=== PATIENT | male | born 1945 | race Caucasian/White ===

== ENCOUNTER → 2019-09-02 | Outpatient (CLI) | payer MEDICARE ==
[~2019-09-02] MED LIST: LEVAQUIN500 MG PO; LIVALO PO; LOSARTAN PO; METOPROLOL PO; PHENERGAN25 MG/1 ML PO; SPIRONOLACTONE PO; TYLENOL WITH C1 EACH PO; ZETIA PO
--- NOTE | 2019-09-02 17:32 | Diagnostic Imaging Report ---
EXAM: CT Abdomen and Pelvis WITHOUT contrast INDICATION: Diarrhea. Abdominal pain. Cholecystectomy. COMPARISON: None. TECHNIQUE: Abdomen and pelvis were scanned utilizing a multidetector helical scanner from the lung base to the pubic symphysis without administration of IV contrast. Absence of intravenous contrast decreases sensitivity for detection of focal lesions and vascular pathology. Coronal and sagittal reformations were obtained. Routine protocol was performed. IV CONTRAST: None ORAL CONTRAST: Was administered COMPLICATIONS: None RADIATION DOSE: Total DLP: 462 mGy*cm Estimated effective dose: (DLP x 0.015 x size factor) mSv CTDIvol has been reviewed. It is below the limits set by the Radiation Protocol Committee (RPC). Dose modulation, iterative reconstruction, and/or weight based adjustment of the mA/kV was utilized to reduce the radiation dose to as low as reasonably achievable. FINDINGS: LINES and TUBES: Sternal wires. LOWER THORAX: Chronic appearing change HEPATOBILIARY: No focal hepatic lesions. No biliary ductal dilation. GALLBLADDER: Cholecystectomy SPLEEN: No splenomegaly. Small splenule PANCREAS: No focal masses or ductal dilatation. ADRENALS: No adrenal nodules KIDNEYS/URETERS: No hydronephrosis. Suspected right extrarenal pelvis versus parapelvic cyst. No stones. GI TRACT: No abnormal distention, wall thickening, or evidence of bowel obstruction. Appendix is normal. Moderate amount of retained feces in the colon could be due to constipation. PELVIC ORGANS/BLADDER: Unremarkable. LYMPH NODES: No lymphadenopathy. VESSELS: Scattered vascular calcification PERITONEUM / RETROPERITONEUM: No free air or fluid. BONES: Scattered degenerative change SOFT TISSUES: Unremarkable. IMPRESSION: 1. Findings which could be due to constipation. GI consultation recommended as clinically indicated. Signed by: Dr. Dick Oates M.D. on 09/02/2019 5:29 PM
== END ==
LOC: CT 15:42
PROVIDERS: ATTEND Internal Medicine Gastroenterology
DX: K62.5 Hemorrhage of anus and rectum (principal); R19.7 Diarrhea, unspecified
CPT/HCPCS: 74176

== ENCOUNTER 2019-10-24 05:16 | Inpatient (IN) | payer MEDICARE, OTHER ==
[~2019-10-24] VITALS: Ht 182.9 cm; Wt 93.0 kg
[2019-10-24 05:42] LABS: BASOPHILS % 0.2 % (0.0-1.0); HEMATOCRIT 50.2 % (38.2-49.6); HEMOGLOBIN 16.8 g/dL (14.0-18.0); LYMPHOCYTES # (AUTO) 0.9 (1.0-3.2); LYMPHOCYTES % 19.5 % (18.0-39.1); MEAN CORPUSCULAR HEMOGLOBIN 30.9 pg (28-32); MEAN CORPUSCULAR HGB CONC 33.5 g/dL (31-35); MEAN CORPUSCULAR VOLUME 92.3 fL (81-99); MONOCYTES # (AUTO) 0.3 (0.2-0.8); MONOCYTES % 6.7 % (4.4-11.3); NEUTROPHILS # (AUTO) 3.3 (2.1-6.9); NEUTROPHILS % 73.2 % (38.7-80.0); RED BLOOD COUNT 5.44 x10e6/uL (4.3-5.7); RED CELL DISTRIBUTION WIDTH 12.9 % (11.7-14.4)
[2019-10-24 05:55] LABS: PLATELET COUNT 96 x10e3/uL (140-360)
[2019-10-24 06:04] LABS: ALBUMIN 3.7 g/dL (3.5-5.0); ALBUMIN/GLOBULIN RATIO 1.1 (0.8-2.0); ANION GAP 18.9 mmol/L (8-16); CALCIUM 8.2 mg/dL (8.4-10.2); CREATININE, SERUM 1.26 mg/dL (0.72-1.25); POTASSIUM 3.9 mmol/L (3.5-5.1)
[2019-10-24 06:15] LABS: CREATINE KINASE MB 0.6 ng/mL (0-5.0)
[2019-10-24] MEDS ORDERED: SODIUM CHLORIDE 0.9% 1000ML 1,000 ML IV ONE (06:45)
[2019-10-24] MEDS ORDERED: SODIUM CHLORIDE 0.9% 1000ML 1,000 ML ONE (06:48)
[2019-10-24] MEDS ORDERED: AZITHROMYCIN 500MG/NS 250 ML 250 ML IV STA (07:30)
[2019-10-24] MEDS ORDERED: NICOTINE 7 MG PATCH TOP PRN (09:30)
[2019-10-24] MEDS ORDERED: ALBUTEROL/IPRATROPIUM 3 ML NEB NEB PRN (09:30)
[2019-10-24] MEDS: DEXTROSE 5% 1,000 ML IV SCH (10:25)
[2019-10-24 14:10] VITALS: BP 128/67
[2019-10-24] MEDS: ACETAMINOPHEN 325 MG TAB PO PRN (14:55)
[2019-10-24 16:00] VITALS: BP 139/75
[2019-10-24] MEDS: DEXAMETHASONE 4 MG TAB PO SCH (17:30)
[2019-10-24 20:46] VITALS: BP 114/69
[2019-10-24] MEDS: ENOXAPARIN SOD INJ 40 MG/0.4 ML SYR SC SCH (21:19)
[2019-10-24 22:00] VITALS: BP 114/69
[2019-10-25] VITALS (8 sets, daily range): BP systolic 115–155; BP diastolic 70–83
[2019-10-25 06:48] LABS: HEMATOCRIT 48.5 % (38.2-49.6); HEMOGLOBIN 16.4 g/dL (14.0-18.0); LYMPHOCYTES # (AUTO) 0.5 (1.0-3.2); LYMPHOCYTES % 21.9 % (18.0-39.1); MEAN CORPUSCULAR HEMOGLOBIN 30.7 pg (28-32); MEAN CORPUSCULAR HGB CONC 33.8 g/dL (31-35); MEAN CORPUSCULAR VOLUME 90.7 fL (81-99); MONOCYTES # (AUTO) 0.2 (0.2-0.8); MONOCYTES % 8.8 % (4.4-11.3); NEUTROPHILS # (AUTO) 1.5 (2.1-6.9); NEUTROPHILS % 69.3 % (38.7-80.0); PLATELET COUNT 100 x10e3/uL (140-360); RED BLOOD COUNT 5.35 x10e6/uL (4.3-5.7); RED CELL DISTRIBUTION WIDTH 12.8 % (11.7-14.4)
[2019-10-25 07:14] LABS: ALANINE AMINOTRANSFERASE 16 IU/L (0-55); ALBUMIN 3.4 g/dL (3.5-5.0); ALKALINE PHOSPHATASE 49 IU/L (40-150); ANION GAP 18.3 mmol/L (8-16); BLOOD UREA NITROGEN 13 mg/dL (7-26); BUN/CREATININE RATIO 18 (6-25); CALCIUM 8.2 mg/dL (8.4-10.2); CARBON DIOXIDE 18 mmol/L (22-29); CHLORIDE 103 mmol/L (98-107); CREATININE, SERUM 0.73 mg/dL (0.72-1.25); EST GLOMERULAR FILTRATION RATE > 60 ML/MIN (60-); GLUCOSE 138 mg/dL (74-118); POTASSIUM 4.3 mmol/L (3.5-5.1); SODIUM 135 mmol/L (136-145)
[2019-10-25] MEDS: DEXTROSE 5% 1,000 ML IV SCH ×3 (07:31→23:35)
[2019-10-25] MEDS: AZITHROMYCIN 250MG/NS 100 ML 100 ML IV SCH (08:00)
[2019-10-25] MEDS: DEXAMETHASONE 4 MG TAB PO SCH (09:27)
[2019-10-25] MEDS: ASPIRIN 81 MG ENTERIC COATED PO SCH (09:27)
[2019-10-25] MEDS: ENOXAPARIN SOD INJ 40 MG/0.4 ML SYR SC SCH ×2 (09:27→20:24)
[2019-10-26] VITALS (7 sets, daily range): BP systolic 131–145; BP diastolic 73–89
[2019-10-26] MEDS ORDERED: FINASTERIDE5 MG PO (00:15)
[2019-10-26] MEDS ORDERED: TADALAFIL5 MG PO (00:15)
[2019-10-26] MEDS ORDERED: BRILINTA90 MG PO (00:15)
[2019-10-26] MEDS ORDERED: TAMSULOSIN PO (00:15)
[2019-10-26 06:51] LABS: HEMATOCRIT 48.2 % (38.2-49.6); HEMOGLOBIN 16.2 g/dL (14.0-18.0); LYMPHOCYTES # (AUTO) 0.6 (1.0-3.2); LYMPHOCYTES % 12.4 % (18.0-39.1); MEAN CORPUSCULAR HEMOGLOBIN 30.7 pg (28-32); MEAN CORPUSCULAR HGB CONC 33.6 g/dL (31-35); MEAN CORPUSCULAR VOLUME 91.3 fL (81-99); MONOCYTES # (AUTO) 0.4 (0.2-0.8); MONOCYTES % 8.3 % (4.4-11.3); NEUTROPHILS # (AUTO) 3.8 (2.1-6.9); NEUTROPHILS % 78.9 % (38.7-80.0); PLATELET COUNT 116 x10e3/uL (140-360); RED BLOOD COUNT 5.28 x10e6/uL (4.3-5.7); RED CELL DISTRIBUTION WIDTH 12.5 % (11.7-14.4)
[2019-10-26 07:07] LABS: ALANINE AMINOTRANSFERASE 16 IU/L (0-55); ALBUMIN 3.3 g/dL (3.5-5.0); ALBUMIN/GLOBULIN RATIO 1.1 (0.8-2.0); ALKALINE PHOSPHATASE 46 IU/L (40-150); ANION GAP 18.9 mmol/L (8-16); BLOOD UREA NITROGEN 11 mg/dL (7-26); BUN/CREATININE RATIO 15 (6-25); CARBON DIOXIDE 19 mmol/L (22-29); CHLORIDE 102 mmol/L (98-107); CREATININE, SERUM 0.73 mg/dL (0.72-1.25); EST GLOMERULAR FILTRATION RATE > 60 ML/MIN (60-); GLUCOSE 125 mg/dL (74-118); MAGNESIUM 1.9 MG/DL (1.3-2.1); POTASSIUM 3.9 mmol/L (3.5-5.1); SODIUM 136 mmol/L (136-145)
[2019-10-26] MEDS: METOPROLOL TARTRATE 25 MG TAB PO SCH ×2 (09:36→16:45)
[2019-10-26] MEDS: DEXAMETHASONE 4 MG TAB PO SCH (09:36)
[2019-10-26] MEDS: LOSARTAN POTASSIUM 25 MG TAB PO SCH (09:36)
[2019-10-26] MEDS: ASPIRIN 81 MG ENTERIC COATED PO SCH (09:36)
[2019-10-26] MEDS: AZITHROMYCIN 250MG/NS 100 ML 100 ML IV SCH (09:36)
[2019-10-26] MEDS: SPIRONOLACTONE 25 MG TAB PO SCH (09:36)
[2019-10-26] MEDS: EZETIMIBE 10 MG TAB PO SCH (09:37)
[2019-10-26] MEDS: ENOXAPARIN SOD INJ 40 MG/0.4 ML SYR SC SCH ×2 (09:37→21:23)
[2019-10-26] MEDS: ACETAMINOPHEN 325 MG TAB PO PRN (11:00)
[2019-10-26] MEDS: DEXTROSE 5% 1,000 ML IV SCH (15:29)
[2019-10-26] MEDS ORDERED: DEXAMETHASONE 4 MG TAB PO SCH (16:00)
[2019-10-26] MEDS: CEFTRIAXONE SOD 1 GM/NS 50 ML 50 ML IV SCH (16:45)
[2019-10-26] MEDS ORDERED: REMDESIVIR 200MG/NS 100ML 200 MG in SODIUM CHLORIDE 0.9% 100 ML 100 ML IV ONE (18:00)
[2019-10-26] MEDS: SIMVASTATIN 40 MG TAB PO SCH (21:23)
[2019-10-27] VITALS (18 sets, daily range): BP systolic 104–152; BP diastolic 62–99
[2019-10-27] MEDS: ALBUTEROL SULFATE HFA 8GM INHALATION AEROSOL INH PRN (09:20)
[2019-10-27] MEDS ORDERED: DEXAMETHASONE SOD PHOS 10 MG/1 ML VIAL IV SCH (11:00)
[2019-10-27] MEDS ORDERED: FUROSEMIDE INJ 10 MG/ML 2 ML VIAL IV ONE (12:00)
[2019-10-27] MEDS: AZITHROMYCIN 250MG/NS 100 ML 100 ML IV SCH (12:35)
[2019-10-27] MEDS: ASPIRIN 81 MG ENTERIC COATED PO SCH (12:36)
[2019-10-27] MEDS: SPIRONOLACTONE 25 MG TAB PO SCH (12:36)
[2019-10-27] MEDS: LOSARTAN POTASSIUM 25 MG TAB PO SCH (12:37)
[2019-10-27] MEDS: ENOXAPARIN SOD INJ 40 MG/0.4 ML SYR SC SCH ×2 (12:39→20:18)
[2019-10-27] MEDS: EZETIMIBE 10 MG TAB PO SCH (12:39)
[2019-10-27] MEDS: METOPROLOL TARTRATE 25 MG TAB PO SCH ×2 (12:39→18:05)
[2019-10-27] MEDS: REMDESIVIR 100MG/NS 100ML 100 MG in SODIUM CHLORIDE 0.9% 100 ML 100 ML IV SCH (17:13)
[2019-10-27] MEDS: CEFTRIAXONE SOD 1 GM/NS 50 ML 50 ML IV SCH (18:04)
[2019-10-27] MEDS: DEXAMETHASONE SOD PHOS 10 MG/1 ML VIAL IV SCH (20:17)
[2019-10-27] MEDS: SIMVASTATIN 40 MG TAB PO SCH (20:17)
[2019-10-28] VITALS (24 sets, daily range): BP systolic 111–143; BP diastolic 59–114
[2019-10-28 06:15] LABS: BASOPHILS % 0.3 % (0.0-1.0); EOSINOPHILS # (AUTO) 0.2 (0.0-0.4); EOSINOPHILS % 3.2 % (0.0-6.0); HEMOGLOBIN 17.2 g/dL (14.0-18.0); LYMPHOCYTES # (AUTO) 0.5 (1.0-3.2); LYMPHOCYTES % 7.8 % (18.0-39.1); MEAN CORPUSCULAR HEMOGLOBIN 30.6 pg (28-32); MEAN CORPUSCULAR HGB CONC 33.1 g/dL (31-35); MEAN CORPUSCULAR VOLUME 92.5 fL (81-99); MONOCYTES # (AUTO) 0.5 (0.2-0.8); MONOCYTES % 8.2 % (4.4-11.3); NEUTROPHILS # (AUTO) 4.7 (2.1-6.9); NEUTROPHILS % 80.2 % (38.7-80.0); PLATELET COUNT 148 x10e3/uL (140-360); RED BLOOD COUNT 5.62 x10e6/uL (4.3-5.7); RED CELL DISTRIBUTION WIDTH 12.5 % (11.7-14.4)
[2019-10-28 06:42] LABS: ALANINE AMINOTRANSFERASE 24 IU/L (0-55); ALBUMIN 3.5 g/dL (3.5-5.0); ALBUMIN/GLOBULIN RATIO 1.1 (0.8-2.0); ALKALINE PHOSPHATASE 55 IU/L (40-150); ANION GAP 15.2 mmol/L (8-16); BLOOD UREA NITROGEN 20 mg/dL (7-26); BUN/CREATININE RATIO 26 (6-25); CALCIUM 8.7 mg/dL (8.4-10.2); CARBON DIOXIDE 23 mmol/L (22-29); CHLORIDE 104 mmol/L (98-107); CREATININE, SERUM 0.77 mg/dL (0.72-1.25); EST GLOMERULAR FILTRATION RATE > 60 ML/MIN (60-); GLUCOSE 155 mg/dL (74-118); POTASSIUM 4.2 mmol/L (3.5-5.1); SODIUM 138 mmol/L (136-145)
[2019-10-28] MEDS: AZITHROMYCIN 250MG/NS 100 ML 100 ML IV SCH (08:32)
[2019-10-28] MEDS: PANTOPRAZOLE SOD 40 MG TABEC PO SCH (08:32)
[2019-10-28] MEDS: EZETIMIBE 10 MG TAB PO SCH (08:33)
[2019-10-28] MEDS: METOPROLOL TARTRATE 25 MG TAB PO SCH ×2 (08:33→17:00)
[2019-10-28] MEDS: LOSARTAN POTASSIUM 25 MG TAB PO SCH (08:33)
[2019-10-28] MEDS: ASPIRIN 81 MG ENTERIC COATED PO SCH (08:33)
[2019-10-28] MEDS: ENOXAPARIN SOD INJ 40 MG/0.4 ML SYR SC SCH ×2 (08:33→20:30)
[2019-10-28] MEDS: FUROSEMIDE INJ 10 MG/ML 2 ML VIAL IV SCH (08:33)
[2019-10-28] MEDS: DEXAMETHASONE SOD PHOS 10 MG/1 ML VIAL IV SCH (08:33)
[2019-10-28] MEDS: SPIRONOLACTONE 25 MG TAB PO SCH (08:33)
[2019-10-28] MEDS ORDERED: DEXAMETHASONE SOD PHOS 10 MG/1 ML VIAL IV SCH (16:00)
[2019-10-28] MEDS: CEFTRIAXONE SOD 1 GM/NS 50 ML 50 ML IV SCH (17:48)
[2019-10-28] MEDS: REMDESIVIR 100MG/NS 100ML 100 MG in SODIUM CHLORIDE 0.9% 100 ML 100 ML IV SCH (17:49)
[2019-10-28] MEDS: ALBUTEROL SULFATE HFA 8GM INHALATION AEROSOL INH PRN (18:55)
[2019-10-28] MEDS: SIMVASTATIN 40 MG TAB PO SCH (20:30)
[2019-10-29] VITALS (30 sets, daily range): BP systolic 110–163; BP diastolic 64–95
[2019-10-29 05:51] LABS: BASOPHILS % 0.1 % (0.0-1.0); HEMATOCRIT 49.8 % (38.2-49.6); LYMPHOCYTES # (AUTO) 0.6 (1.0-3.2); LYMPHOCYTES % 5.7 % (18.0-39.1); MEAN CORPUSCULAR HGB CONC 34.1 g/dL (31-35); MEAN CORPUSCULAR VOLUME 90.7 fL (81-99); MONOCYTES # (AUTO) 0.6 (0.2-0.8); MONOCYTES % 5.8 % (4.4-11.3); NEUTROPHILS # (AUTO) 9.7 (2.1-6.9); NEUTROPHILS % 87.9 % (38.7-80.0); PLATELET COUNT 207 x10e3/uL (140-360); RED BLOOD COUNT 5.49 x10e6/uL (4.3-5.7); RED CELL DISTRIBUTION WIDTH 12.4 % (11.7-14.4)
[2019-10-29 06:09] LABS: ANION GAP 15.1 mmol/L (8-16); BLOOD UREA NITROGEN 23 mg/dL (7-26); BUN/CREATININE RATIO 29 (6-25); CALCIUM 8.5 mg/dL (8.4-10.2); CARBON DIOXIDE 27 mmol/L (22-29); CHLORIDE 103 mmol/L (98-107); EST GLOMERULAR FILTRATION RATE > 60 ML/MIN (60-); GLUCOSE 142 mg/dL (74-118); POTASSIUM 4.1 mmol/L (3.5-5.1); SODIUM 141 mmol/L (136-145)
[2019-10-29] MEDS: DEXAMETHASONE SOD PHOS 10 MG/1 ML VIAL IV SCH (08:52)
[2019-10-29] MEDS: EZETIMIBE 10 MG TAB PO SCH (08:53)
[2019-10-29] MEDS: PANTOPRAZOLE SOD 40 MG TABEC PO SCH (08:53)
[2019-10-29] MEDS: ENOXAPARIN SOD INJ 40 MG/0.4 ML SYR SC SCH ×2 (08:53→20:23)
[2019-10-29] MEDS: FUROSEMIDE INJ 10 MG/ML 2 ML VIAL IV SCH (08:57)
[2019-10-29] MEDS: SPIRONOLACTONE 25 MG TAB PO SCH (08:57)
[2019-10-29] MEDS: METOPROLOL TARTRATE 25 MG TAB PO SCH ×2 (08:58→17:00)
[2019-10-29] MEDS: LOSARTAN POTASSIUM 25 MG TAB PO SCH (08:58)
[2019-10-29] MEDS: AZITHROMYCIN 250MG/NS 100 ML 100 ML IV SCH (09:34)
[2019-10-29] MEDS: CEFTRIAXONE SOD 1 GM/NS 50 ML 50 ML IV SCH (15:34)
[2019-10-29] MEDS: REMDESIVIR 100MG/NS 100ML 100 MG in SODIUM CHLORIDE 0.9% 100 ML 100 ML IV SCH (17:37)
[2019-10-29] MEDS: SIMVASTATIN 40 MG TAB PO SCH (20:23)
[2019-10-29] MEDS ORDERED: TRAZODONE HCL 50 MG TAB PO PRN (21:00)
[2019-10-30] VITALS (25 sets, daily range): BP systolic 95–142; BP diastolic 58–99
[2019-10-30 04:54] LABS: BASOPHILS % 0.2 % (0.0-1.0); EOSINOPHILS % 0.1 % (0.0-6.0); HEMATOCRIT 50.3 % (38.2-49.6); HEMOGLOBIN 17.1 g/dL (14.0-18.0); LYMPHOCYTES # (AUTO) 0.7 (1.0-3.2); LYMPHOCYTES % 5.7 % (18.0-39.1); MEAN CORPUSCULAR HEMOGLOBIN 30.5 pg (28-32); MEAN CORPUSCULAR VOLUME 89.8 fL (81-99); MONOCYTES # (AUTO) 0.5 (0.2-0.8); MONOCYTES % 3.9 % (4.4-11.3); NEUTROPHILS # (AUTO) 10.7 (2.1-6.9); NEUTROPHILS % 89.3 % (38.7-80.0); PLATELET COUNT 231 x10e3/uL (140-360); RED CELL DISTRIBUTION WIDTH 12.3 % (11.7-14.4)
[2019-10-30] MEDS: PANTOPRAZOLE SOD 40 MG TABEC PO SCH (08:50)
[2019-10-30] MEDS: DEXAMETHASONE SOD PHOS 10 MG/1 ML VIAL IV SCH (08:50)
[2019-10-30] MEDS: FUROSEMIDE INJ 10 MG/ML 2 ML VIAL IV SCH (08:51)
[2019-10-30] MEDS: EZETIMIBE 10 MG TAB PO SCH (08:51)
[2019-10-30] MEDS: ENOXAPARIN SOD INJ 40 MG/0.4 ML SYR SC SCH ×2 (08:51→20:40)
[2019-10-30] MEDS: SPIRONOLACTONE 25 MG TAB PO SCH (08:51)
[2019-10-30] MEDS: METOPROLOL TARTRATE 25 MG TAB PO SCH ×2 (09:00→16:58)
[2019-10-30] MEDS: LOSARTAN POTASSIUM 25 MG TAB PO SCH (09:00)
[2019-10-30] MEDS: AZITHROMYCIN 250MG/NS 100 ML 100 ML IV SCH (09:46)
[2019-10-30] MEDS ORDERED: DEXMEDETOMIDINE 200MCG/NS 50ML 50 ML IV PRN (15:30)
[2019-10-30] MEDS: CEFTRIAXONE SOD 1 GM/NS 50 ML 50 ML IV SCH (15:47)
[2019-10-30] MEDS: REMDESIVIR 100MG/NS 100ML 100 MG in SODIUM CHLORIDE 0.9% 100 ML 100 ML IV SCH (16:58)
[2019-10-30] MEDS: SIMVASTATIN 40 MG TAB PO SCH (20:40)
[2019-10-31] VITALS (26 sets, daily range): BP systolic 94–137; BP diastolic 60–81
[2019-10-31 05:22] LABS: BASOPHILS % 0.1 % (0.0-1.0); HEMOGLOBIN 16.8 g/dL (14.0-18.0); LYMPHOCYTES # (AUTO) 0.8 (1.0-3.2); LYMPHOCYTES % 5.4 % (18.0-39.1); MEAN CORPUSCULAR VOLUME 91.4 fL (81-99); MONOCYTES # (AUTO) 0.4 (0.2-0.8); MONOCYTES % 2.8 % (4.4-11.3); NEUTROPHILS # (AUTO) 13.2 (2.1-6.9); NEUTROPHILS % 90.8 % (38.7-80.0); PLATELET COUNT 204 x10e3/uL (140-360); RED BLOOD COUNT 5.25 x10e6/uL (4.3-5.7); RED CELL DISTRIBUTION WIDTH 12.2 % (11.7-14.4)
[2019-10-31 05:42] LABS: BLOOD UREA NITROGEN 26 mg/dL (7-26); BUN/CREATININE RATIO 34 (6-25); CALCIUM 8.7 mg/dL (8.4-10.2); CARBON DIOXIDE 26 mmol/L (22-29); CHLORIDE 101 mmol/L (98-107); CREATININE, SERUM 0.76 mg/dL (0.72-1.25); EST GLOMERULAR FILTRATION RATE > 60 ML/MIN (60-); GLUCOSE 121 mg/dL (74-118); SODIUM 139 mmol/L (136-145)
[2019-10-31] MEDS: DEXMEDETOMIDINE 200MCG/NS 50ML 50 ML IV PRN ×3 (06:57→23:12)
[2019-10-31] MEDS: DEXAMETHASONE SOD PHOS INJ 4 MG/ML VIAL IV SCH (08:21)
[2019-10-31] MEDS: PANTOPRAZOLE SOD 40 MG TABEC PO SCH (08:21)
[2019-10-31] MEDS: ENOXAPARIN SOD INJ 40 MG/0.4 ML SYR SC SCH (08:21)
[2019-10-31] MEDS: FUROSEMIDE INJ 10 MG/ML 2 ML VIAL IV SCH (08:21)
[2019-10-31] MEDS: EZETIMIBE 10 MG TAB PO SCH (08:21)
[2019-10-31] MEDS: SPIRONOLACTONE 25 MG TAB PO SCH (08:21)
[2019-10-31] MEDS: METOPROLOL TARTRATE 25 MG TAB PO SCH ×2 (09:00→17:00)
[2019-10-31] MEDS ORDERED: FUROSEMIDE INJ 10 MG/ML 4 ML VIAL IV ONE (11:30)
[2019-10-31] MEDS: CEFTRIAXONE SOD 1 GM/NS 50 ML 50 ML IV SCH (16:04)
[2019-10-31] MEDS: SIMVASTATIN 40 MG TAB PO SCH (20:26)
[2019-11-01] VITALS (24 sets, daily range): BP systolic 86–141; BP diastolic 53–96
[2019-11-01 04:56] LABS: BASOPHILS % 0.2 % (0.0-1.0); EOSINOPHILS % 0.1 % (0.0-6.0); HEMATOCRIT 49.3 % (38.2-49.6); LYMPHOCYTES # (AUTO) 0.8 (1.0-3.2); MEAN CORPUSCULAR HEMOGLOBIN 30.4 pg (28-32); MEAN CORPUSCULAR HGB CONC 34.5 g/dL (31-35); MONOCYTES # (AUTO) 0.4 (0.2-0.8); MONOCYTES % 2.3 % (4.4-11.3); NEUTROPHILS # (AUTO) 14.9 (2.1-6.9); NEUTROPHILS % 91.4 % (38.7-80.0); PLATELET COUNT 240 x10e3/uL (140-360)
[2019-11-01 05:15] LABS: ANION GAP 15.3 mmol/L (8-16); BLOOD UREA NITROGEN 29 mg/dL (7-26); BUN/CREATININE RATIO 39 (6-25); CALCIUM 8.7 mg/dL (8.4-10.2); CARBON DIOXIDE 25 mmol/L (22-29); CHLORIDE 101 mmol/L (98-107); CREATININE, SERUM 0.74 mg/dL (0.72-1.25); EST GLOMERULAR FILTRATION RATE > 60 ML/MIN (60-); GLUCOSE 128 mg/dL (74-118); POTASSIUM 4.3 mmol/L (3.5-5.1); SODIUM 137 mmol/L (136-145)
[2019-11-01] MEDS: DEXMEDETOMIDINE 200MCG/NS 50ML 50 ML IV PRN ×4 (06:10→20:40)
[2019-11-01] MEDS: PANTOPRAZOLE SOD 40 MG TABEC PO SCH (07:30)
[2019-11-01] MEDS: ENOXAPARIN SOD INJ 40 MG/0.4 ML SYR SC SCH ×2 (08:15→16:02)
[2019-11-01] MEDS: DEXAMETHASONE SOD PHOS INJ 4 MG/ML VIAL IV SCH (08:15)
[2019-11-01] MEDS: SPIRONOLACTONE 25 MG TAB PO SCH (08:15)
[2019-11-01] MEDS: FUROSEMIDE INJ 10 MG/ML 2 ML VIAL IV SCH (08:15)
[2019-11-01] MEDS: EZETIMIBE 10 MG TAB PO SCH (08:16)
[2019-11-01] MEDS: METOPROLOL TARTRATE 25 MG TAB PO SCH ×2 (08:16→17:00)
[2019-11-01] MEDS ORDERED: ENOXAPARIN SOD INJ 40 MG/0.4 ML SYR SC SCH (09:00)
[2019-11-01] MEDS: CEFTRIAXONE SOD 1 GM/NS 50 ML 50 ML IV SCH (16:02)
[2019-11-01] MEDS: VANCOMYCIN 1GM/NS 250 ML 250 ML IV SCH (20:11)
[2019-11-01] MEDS: MIRTAZAPINE 15 MG TAB PO SCH (20:11)
[2019-11-01] MEDS: SIMVASTATIN 40 MG TAB PO SCH (20:11)
[2019-11-01] MEDS: MEROPENEM 1GM 100 ML IV SCH (21:30)
[2019-11-02] VITALS (25 sets, daily range): BP systolic 87–141; BP diastolic 45–87
[2019-11-02] MEDS: DEXMEDETOMIDINE 200MCG/NS 50ML 50 ML IV PRN (03:20)
[2019-11-02 04:57] LABS: BASOPHILS % 0.2 % (0.0-1.0); EOSINOPHILS % 0.2 % (0.0-6.0); HEMATOCRIT 52.1 % (38.2-49.6); HEMOGLOBIN 17.8 g/dL (14.0-18.0); LYMPHOCYTES # (AUTO) 0.7 (1.0-3.2); LYMPHOCYTES % 3.7 % (18.0-39.1); MEAN CORPUSCULAR HEMOGLOBIN 31.2 pg (28-32); MEAN CORPUSCULAR HGB CONC 34.2 g/dL (31-35); MEAN CORPUSCULAR VOLUME 91.4 fL (81-99); MONOCYTES # (AUTO) 0.3 (0.2-0.8); MONOCYTES % 1.5 % (4.4-11.3); NEUTROPHILS # (AUTO) 16.5 (2.1-6.9); NEUTROPHILS % 93.3 % (38.7-80.0); PLATELET COUNT 257 x10e3/uL (140-360); RED CELL DISTRIBUTION WIDTH 12.2 % (11.7-14.4)
[2019-11-02 05:19] LABS: ANION GAP 17.2 mmol/L (8-16); BLOOD UREA NITROGEN 30 mg/dL (7-26); BUN/CREATININE RATIO 40 (6-25); CALCIUM 8.3 mg/dL (8.4-10.2); CARBON DIOXIDE 24 mmol/L (22-29); CHLORIDE 105 mmol/L (98-107); CREATININE, SERUM 0.75 mg/dL (0.72-1.25); EST GLOMERULAR FILTRATION RATE > 60 ML/MIN (60-); GLUCOSE 120 mg/dL (74-118); POTASSIUM 4.2 mmol/L (3.5-5.1); SODIUM 142 mmol/L (136-145)
[2019-11-02] MEDS: MEROPENEM 1GM 100 ML IV SCH ×3 (05:55→22:55)
[2019-11-02] MEDS ORDERED: ROCURONIUM BROMIDE 1,250 MG in SODIUM CHLORIDE 0.9% 250ML 125 ML IV SCH (08:30)
[2019-11-02] MEDS ORDERED: SODIUM CHLORIDE 0.9% 1000ML 1,000 ML IV SCH ×2 (08:45→09:45)
[2019-11-02] MEDS: METOPROLOL TARTRATE 25 MG TAB PO SCH ×2 (09:00→15:51)
[2019-11-02] MEDS: FUROSEMIDE INJ 10 MG/ML 2 ML VIAL IV SCH (09:00)
[2019-11-02] MEDS ORDERED: NOREPINEPHRINE 8 MG/D5W 250 ML 250 ML ONE (09:45)
[2019-11-02] MEDS: ENOXAPARIN SOD INJ 40 MG/0.4 ML SYR SC SCH ×2 (10:31→20:00)
[2019-11-02] MEDS: DEXAMETHASONE SOD PHOS INJ 4 MG/ML VIAL IV SCH (10:31)
[2019-11-02] MEDS: VANCOMYCIN 1GM/NS 250 ML 250 ML IV SCH ×2 (10:31→20:00)
[2019-11-02] MEDS: FENTANYL CITRATE INJ 2,000 MCG in SODIUM CHLORIDE 0.9% 250ML 210 ML IV PRN ×2 (11:36→15:31)
[2019-11-02] MEDS: MIDAZOLAM HCL 50 MG in SODIUM CHLORIDE 0.9% 100 ML 90 ML IV PRN ×3 (11:37→18:16)
[2019-11-02] MEDS: NOREPINEPHRINE INJ 4MG/4ML 8 MG in DEXTROSE 5% 250ML 250 ML IV SCH (11:37)
[2019-11-02 12:15] LABS: ABG HCO3 25 mmol/L (22-26); ABG PCO2 68 mmHg (35-45); ABG PH 7.18 (7.35-7.45); ABG PO2 129 mmHg (80-105); ABG TCO2 27
[2019-11-02] MEDS: PANTOPRAZOLE SOD 40 MG TABEC PO SCH (12:43)
[2019-11-02] MEDS: EZETIMIBE 10 MG TAB PO SCH (12:43)
[2019-11-02] MEDS: SPIRONOLACTONE 25 MG TAB PO SCH (12:43)
[2019-11-02] MEDS ORDERED: FENTANYL 2,000 MCG/250 ML BAG ONE (12:53)
[2019-11-02] MEDS ORDERED: MIDAZOLAM HCL 5MG/ML 10ML VIAL 100 ML BAG IV ONE (12:53)
[2019-11-02 13:20] LABS: BLOOD UREA NITROGEN 34 mg/dL (7-26); BUN/CREATININE RATIO 34 (6-25); CALCIUM 7.6 mg/dL (8.4-10.2); CARBON DIOXIDE 20 mmol/L (22-29); CHLORIDE 108 mmol/L (98-107); CREATININE, SERUM 1.01 mg/dL (0.72-1.25); EST GLOMERULAR FILTRATION RATE > 60 ML/MIN (60-); GLUCOSE 163 mg/dL (74-118); SODIUM 140 mmol/L (136-145)
[2019-11-02] MEDS: VASOPRESSIN 60 UNIT in DEXTROSE 5% 50ML 57 ML IV SCH (18:15)
[2019-11-02] MEDS: SIMVASTATIN 40 MG TAB PO SCH (20:00)
[2019-11-02] MEDS: MIRTAZAPINE 15 MG TAB PO SCH (20:00)
[2019-11-02] MEDS: ACETAMINOPHEN 325 MG TAB PO PRN (20:01)
[2019-11-03] VITALS (24 sets, daily range): BP systolic 59–110; BP diastolic 56–70
[2019-11-03 04:49] LABS: BASOPHILS # (AUTO) 0.1 (0.0-0.1); BASOPHILS % 0.2 % (0.0-1.0); HEMATOCRIT 49.2 % (38.2-49.6); HEMOGLOBIN 15.6 g/dL (14.0-18.0); LYMPHOCYTES # (AUTO) 0.7 (1.0-3.2); LYMPHOCYTES % 2.5 % (18.0-39.1); MEAN CORPUSCULAR HEMOGLOBIN 30.6 pg (28-32); MEAN CORPUSCULAR HGB CONC 31.7 g/dL (31-35); MONOCYTES # (AUTO) 0.8 (0.2-0.8); NEUTROPHILS # (AUTO) 25.6 (2.1-6.9); NEUTROPHILS % 92.5 % (38.7-80.0); PLATELET COUNT 279 x10e3/uL (140-360); RED BLOOD COUNT 5.09 x10e6/uL (4.3-5.7); RED CELL DISTRIBUTION WIDTH 12.8 % (11.7-14.4)
[2019-11-03 05:04] LABS: MEAN CORPUSCULAR VOLUME 96.7 fL (81-99)
[2019-11-03 05:13] LABS: ANION GAP 17.3 mmol/L (8-16); CALCIUM 7.6 mg/dL (8.4-10.2); POTASSIUM 5.3 mmol/L (3.5-5.1)
[2019-11-03 05:29] LABS: CREATININE, SERUM 1.66 mg/dL (0.72-1.25)
[2019-11-03] MEDS: MEROPENEM 1GM 100 ML IV SCH (05:34)
[2019-11-03] MEDS: FUROSEMIDE INJ 10 MG/ML 2 ML VIAL IV SCH (09:00)
[2019-11-03] MEDS: METOPROLOL TARTRATE 25 MG TAB PO SCH ×2 (09:00→17:00)
[2019-11-03] MEDS: PANTOPRAZOLE SOD 40 MG TABEC PO SCH (09:29)
[2019-11-03] MEDS: SPIRONOLACTONE 25 MG TAB PO SCH (09:29)
[2019-11-03] MEDS: ENOXAPARIN SOD INJ 40 MG/0.4 ML SYR SC SCH ×2 (09:29→20:17)
[2019-11-03] MEDS: DEXAMETHASONE SOD PHOS INJ 4 MG/ML VIAL IV SCH (09:29)
[2019-11-03] MEDS: VANCOMYCIN 1GM/NS 250 ML 250 ML IV SCH ×2 (09:29→20:17)
[2019-11-03] MEDS: EZETIMIBE 10 MG TAB PO SCH (09:29)
[2019-11-03] MEDS: MIDAZOLAM HCL 50 MG in SODIUM CHLORIDE 0.9% 100 ML 90 ML IV PRN ×3 (09:55→20:00)
[2019-11-03] MEDS ORDERED: SODIUM CHLORIDE 0.9% IV SCH (11:00)
[2019-11-03] MEDS: NOREPINEPHRINE INJ 4MG/4ML 8 MG in DEXTROSE 5% 250ML 250 ML IV SCH (11:00)
[2019-11-03] MEDS ORDERED: ROCURONIUM BROMIDE IV SCH (11:00)
[2019-11-03 11:52] LABS: ABG HCO3 24 mmol/L (22-26); ABG PCO2 61 mmHg (35-45); ABG PO2 120 mmHg (80-105); ABG TCO2 26
[2019-11-03] MEDS: ROCURONIUM BROMIDE 1,250 MG in SODIUM CHLORIDE 0.9% 250ML 125 ML IV SCH (12:00)
[2019-11-03] MEDS: CEFEPIME 1GM/NS 0.9% 50 ML 50 ML IV SCH (15:11)
[2019-11-03] MEDS: FENTANYL CITRATE INJ 2,000 MCG in SODIUM CHLORIDE 0.9% 250ML 210 ML IV PRN ×3 (15:11→18:31)
[2019-11-03] MEDS: VASOPRESSIN 60 UNIT in DEXTROSE 5% 50ML 57 ML IV SCH (15:30)
[2019-11-03] MEDS ORDERED: SODIUM BICARBONATE 8.4% INJ 50 ML SYR IV NR (16:45)
[2019-11-03] MEDS ORDERED: NITROGLYCERIN 2% OINT 1 GM PKT TOP ONE (18:00)
[2019-11-03] MEDS: ACETAMINOPHEN 325 MG TAB PO PRN (18:31)
[2019-11-03 18:42] LABS: ABG PCO2 71 mmHg (35-45); ABG PH 7.19 (7.35-7.45); ABG PO2 101 mmHg (80-105)
[2019-11-03 18:43] LABS: ABG HCO3 27 mmol/L (22-26); ABG TCO2 29
[2019-11-03] MEDS ORDERED: SODIUM BICARBONATE 8.4% INJ 50 ML SYR IV STA (18:56)
[2019-11-03] MEDS: MIRTAZAPINE 15 MG TAB PO SCH (20:18)
[2019-11-03] MEDS: SIMVASTATIN 40 MG TAB PO SCH (20:18)
[2019-11-03] MEDS: METRONIDAZOLE 500MG/NS 100ML 100 ML IV SCH (21:02)
[2019-11-04] VITALS (60 sets, daily range): BP systolic 79–109; BP diastolic 32–78
[2019-11-04] MEDS ORDERED: ACETAMINOPHEN 1000 MG/100 ML IV STA (02:42)
[2019-11-04] MEDS ORDERED: ALTEPLASE 50 MG/VIAL (29 MILLION IU) IV ONE ×2 (02:45)
[2019-11-04 02:54] LABS: BASOPHILS # (AUTO) 0.1 (0.0-0.1); BASOPHILS % 0.2 % (0.0-1.0); HEMATOCRIT 45.6 % (38.2-49.6); HEMOGLOBIN 14.2 g/dL (14.0-18.0); LYMPHOCYTES # (AUTO) 0.5 (1.0-3.2); LYMPHOCYTES % 2.2 % (18.0-39.1); MEAN CORPUSCULAR HEMOGLOBIN 30.5 pg (28-32); MEAN CORPUSCULAR HGB CONC 31.1 g/dL (31-35); MEAN CORPUSCULAR VOLUME 98.1 fL (81-99); MONOCYTES # (AUTO) 0.6 (0.2-0.8); MONOCYTES % 2.5 % (4.4-11.3); NEUTROPHILS # (AUTO) 20.7 (2.1-6.9); PLATELET COUNT 210 x10e3/uL (140-360); RED BLOOD COUNT 4.65 x10e6/uL (4.3-5.7); RED CELL DISTRIBUTION WIDTH 13.2 % (11.7-14.4)
[2019-11-04] MEDS ORDERED: HEPARIN 25,000 UNIT DRIP IV ONE (03:04)
[2019-11-04] MEDS ORDERED: ACETAMINOPHEN 1000 MG/100 ML 100 ML IV ONE (03:06)
[2019-11-04 03:12] LABS: INR 1.24; PROTHROMBIN TIME 16.2 seconds (11.9-14.5)
[2019-11-04] MEDS ORDERED: SODIUM CHLORIDE 0.9% 100 ML ONE (03:12)
[2019-11-04 03:24] LABS: ALBUMIN 2.4 g/dL (3.5-5.0); ALBUMIN/GLOBULIN RATIO 0.8 (0.8-2.0); ANION GAP 13.5 mmol/L (8-16); CALCIUM 7.4 mg/dL (8.4-10.2); POTASSIUM 5.5 mmol/L (3.5-5.1)
[2019-11-04 03:32] LABS: CREATININE, SERUM 2.66 mg/dL (0.72-1.25)
[2019-11-04 03:50] LABS: CREATINE KINASE MB 49.7 ng/mL (0-5.0)
[2019-11-04 03:56] LABS: ABG HCO3 27 mmol/L (22-26); ABG PCO2 68 mmHg (35-45); ABG PH 7.21 (7.35-7.45); ABG PO2 107 mmHg (80-105); ABG TCO2 29
[2019-11-04 05:37] LABS: BASOPHILS # (AUTO) 0.1 (0.0-0.1); BASOPHILS % 0.2 % (0.0-1.0); HEMATOCRIT 46.9 % (38.2-49.6); HEMOGLOBIN 14.6 g/dL (14.0-18.0); LYMPHOCYTES # (AUTO) 0.5 (1.0-3.2); LYMPHOCYTES % 2.2 % (18.0-39.1); MEAN CORPUSCULAR HEMOGLOBIN 30.4 pg (28-32); MEAN CORPUSCULAR HGB CONC 31.1 g/dL (31-35); MEAN CORPUSCULAR VOLUME 97.5 fL (81-99); MONOCYTES # (AUTO) 0.8 (0.2-0.8); MONOCYTES % 3.6 % (4.4-11.3); NEUTROPHILS # (AUTO) 21.3 (2.1-6.9); NEUTROPHILS % 92.7 % (38.7-80.0); PLATELET COUNT 204 x10e3/uL (140-360); RED BLOOD COUNT 4.81 x10e6/uL (4.3-5.7); RED CELL DISTRIBUTION WIDTH 13.2 % (11.7-14.4)
[2019-11-04] MEDS: METRONIDAZOLE 500MG/NS 100ML 100 ML IV SCH ×3 (05:39→21:17)
[2019-11-04] MEDS: HEPARIN 25,000 UNIT 900 UNIT in DEXTROSE 5% 250ML 250 ML IV SCH (06:08)
[2019-11-04 06:10] LABS: ALBUMIN 2.5 g/dL (3.5-5.0); ALBUMIN/GLOBULIN RATIO 0.9 (0.8-2.0); ANION GAP 12.3 mmol/L (8-16); CALCIUM 7.4 mg/dL (8.4-10.2); CREATININE, SERUM 2.54 mg/dL (0.72-1.25); POTASSIUM 5.3 mmol/L (3.5-5.1)
[2019-11-04] MEDS: VANCOMYCIN 1GM/NS 250 ML 250 ML IV SCH (08:00)
[2019-11-04] MEDS: FENTANYL CITRATE INJ 2,000 MCG in SODIUM CHLORIDE 0.9% 250ML 210 ML IV PRN ×2 (09:00→15:00)
[2019-11-04] MEDS: METOPROLOL TARTRATE 25 MG TAB PO SCH (09:00)
[2019-11-04] MEDS: FUROSEMIDE INJ 10 MG/ML 2 ML VIAL IV SCH (09:00)
[2019-11-04 09:56] LABS: CREATINE KINASE MB 60.3 ng/mL (0-5.0)
[2019-11-04] MEDS: DOCUSATE SODIUM LIQD 100 MG/10 ML UDC NG SCH ×2 (10:09→17:19)
[2019-11-04] MEDS: PANTOPRAZOLE SOD 40 MG TABEC PO SCH (10:09)
[2019-11-04] MEDS: EZETIMIBE 10 MG TAB PO SCH (10:09)
[2019-11-04] MEDS: DEXAMETHASONE SOD PHOS INJ 4 MG/ML VIAL IV SCH (10:09)
[2019-11-04] MEDS: MIDAZOLAM HCL 50 MG in SODIUM CHLORIDE 0.9% 100 ML 90 ML IV PRN ×2 (10:11→16:30)
[2019-11-04] MEDS: NOREPINEPHRINE INJ 4MG/4ML 8 MG in DEXTROSE 5% 250ML 250 ML IV SCH ×2 (11:00→18:00)
[2019-11-04] MEDS ORDERED: SODIUM BICARBONATE 8.4% 150 ML in SODIUM CHLORIDE 0.45% 1,000 ML IV ONE (11:15)
[2019-11-04] MEDS ORDERED: SODIUM CHLORIDE 0.9% 250ML 250 ML IV ONE (11:15)
[2019-11-04] MEDS: ROCURONIUM BROMIDE 1,250 MG in SODIUM CHLORIDE 0.9% 250ML 125 ML IV SCH (12:00)
[2019-11-04] MEDS: VASOPRESSIN 60 UNIT in DEXTROSE 5% 50ML 57 ML IV SCH (12:51)
[2019-11-04] MEDS ORDERED: AMIODARONE HCL 150 MG/100 ML BAG IV ONE (14:45)
[2019-11-04] MEDS ORDERED: AMIODARONE HCL 900 MG in DEXTROSE 5% 500ML 500 ML IV SCH (14:45)
[2019-11-04] MEDS ORDERED: ASPIRIN 325 MG TAB PO ONE (14:45)
[2019-11-04] MEDS ORDERED: CLOPIDOGREL BISULFATE 75 MG TAB PO ONE (14:45)
[2019-11-04] MEDS ORDERED: AMIODARONE HCL 100 ML IV ONE (15:00)
[2019-11-04] MEDS: CEFEPIME 1GM/NS 0.9% 50 ML 50 ML IV SCH (15:00)
[2019-11-04] MEDS ORDERED: AMIODARONE 900MG 500 ML IV SCH (15:30)
[2019-11-04] MEDS ORDERED: DEXTROSE 50% SYRINGE 50 ML IV PRN (18:00)
[2019-11-04 18:25] LABS: BILIRUBIN,URINE NEGATIVE (NEGATIVE); CLARITY,URINE SL CLOUDY (CLEAR); COLOR,URINE YELLOW (YELLOW); KETONES,URINE NEGATIVE (NEGATIVE); LEUKOCYTE ESTERASE ,URINE NEGATIVE (NEGATIVE); NITRITE,URINE NEGATIVE (NEGATIVE); PROTEIN,URINE DIPSTICK 1+ (NEGATIVE); URINE UROBILINOGEN 0.2 mg/dL (0.2 - 1)
[2019-11-04] MEDS: INSULIN LISPRO 100 UNIT/1 ML 3ML VIAL SQ SCH (18:29)
[2019-11-04 18:34] LABS: AMORPHOUS SEDIMENT,URINE FEW (FEW); BACTERIA,URINE MODERATE /HPF; EPITHELIAL CELLS,URINE RARE /LPF; WBC,URINE (MAN) 0-5 /HPF (0-5)
[2019-11-04 18:56] LABS: CREATINE KINASE MB 59.8 ng/mL (0-5.0)
[2019-11-04 19:36] LABS: EOSINOPHIL SMEAR,URINE NONE SEEN (NONE SEEN)
[2019-11-04] MEDS: MIRTAZAPINE 15 MG TAB PO SCH (20:13)
[2019-11-04] MEDS: SIMVASTATIN 40 MG TAB PO SCH (20:13)
[2019-11-04] MEDS: AMIODARONE 900MG 500 ML IV SCH (21:30)
[2019-11-05] VITALS (26 sets, daily range): BP systolic 76–114; BP diastolic 43–77
[2019-11-05] MEDS: INSULIN LISPRO 100 UNIT/1 ML 3ML VIAL SQ SCH ×5 (01:14→23:25)
[2019-11-05 01:47] LABS: CREATINE KINASE MB 96.5 ng/mL (0-5.0)
[2019-11-05] MEDS: HEPARIN 25,000 UNIT 900 UNIT in DEXTROSE 5% 250ML 250 ML IV SCH (04:00)
[2019-11-05] MEDS ORDERED: DEXTROSE 5% 250ML 250 ML IV ONE (04:33)
[2019-11-05] MEDS ORDERED: EPINEPHRINE HCL 1:1000 1ML 1 MG/ML AMP ONE (04:40)
[2019-11-05] MEDS: EPINEPHRINE HCL 1:1000 1ML 4 MG in DEXTROSE 5% 250ML 250 ML IV PRN (05:29)
[2019-11-05] MEDS: METRONIDAZOLE 500MG/NS 100ML 100 ML IV SCH ×3 (05:41→20:19)
[2019-11-05 06:34] LABS: BASOPHILS # (AUTO) 0.1 (0.0-0.1); BASOPHILS % 0.2 % (0.0-1.0); HEMATOCRIT 44.9 % (38.2-49.6); HEMOGLOBIN 13.6 g/dL (14.0-18.0); LYMPHOCYTES # (AUTO) 0.6 (1.0-3.2); LYMPHOCYTES % 2.2 % (18.0-39.1); MEAN CORPUSCULAR HEMOGLOBIN 30.7 pg (28-32); MEAN CORPUSCULAR HGB CONC 30.3 g/dL (31-35); MEAN CORPUSCULAR VOLUME 101.4 fL (81-99); MONOCYTES # (AUTO) 1.1 (0.2-0.8); NEUTROPHILS # (AUTO) 25.6 (2.1-6.9); NEUTROPHILS % 92.2 % (38.7-80.0); PLATELET COUNT 195 x10e3/uL (140-360); RED BLOOD COUNT 4.43 x10e6/uL (4.3-5.7); RED CELL DISTRIBUTION WIDTH 13.2 % (11.7-14.4)
[2019-11-05 06:55] LABS: ANION GAP 18.1 mmol/L (8-16); CREATININE, SERUM 3.61 mg/dL (0.72-1.25); MAGNESIUM 2.9 MG/DL (1.3-2.1); PHOSPHORUS 5.7 MG/DL (2.3-4.7); POTASSIUM 5.1 mmol/L (3.5-5.1)
[2019-11-05 06:57] LABS: CALCIUM 6.7 mg/dL (8.4-10.2)
[2019-11-05 07:59] LABS: LYMPHOCYTES % (MANUAL) 4 % (19-48); MONOCYTES % (MANUAL) 6 % (3.4-9.0); NEUTROPHILS % (MANUAL) 90 % (40-74); PLATELET ESTIMATE ADEQUATE; PLATELET MORPHOLOGY COMMENT NORMAL; RBC MORPHOLOGY COMMENT NORMAL
[2019-11-05] MEDS ORDERED: MIDODRINE 2.5 MG TAB PO SCH (08:00)
[2019-11-05] MEDS ORDERED: CALCIUM GLUCONATE 10% INJ 9.3 MEQ in SODIUM CHLORIDE 0.9% 100 ML 100 ML IV ONE (08:15)
[2019-11-05] MEDS: FUROSEMIDE INJ 10 MG/ML 2 ML VIAL IV SCH (09:00)
[2019-11-05] MEDS: DOCUSATE SODIUM LIQD 100 MG/10 ML UDC NG SCH ×2 (09:01→17:47)
[2019-11-05] MEDS: DEXAMETHASONE SOD PHOS INJ 4 MG/ML VIAL IV SCH (09:01)
[2019-11-05] MEDS: PANTOPRAZOLE SOD 40 MG TABEC PO SCH (09:01)
[2019-11-05] MEDS: EZETIMIBE 10 MG TAB PO SCH (09:02)
[2019-11-05] MEDS: NITROGLYCERIN 2% OINT 1 GM PKT TOP SCH (09:02)
[2019-11-05] MEDS: VASOPRESSIN 60 UNIT in DEXTROSE 5% 50ML 57 ML IV SCH (09:24)
[2019-11-05] MEDS: NOREPINEPHRINE INJ 4MG/4ML 8 MG in DEXTROSE 5% 250ML 250 ML IV SCH ×2 (09:24→15:08)
[2019-11-05] MEDS: ASPIRIN 81 MG CHEW TAB PO SCH (10:58)
[2019-11-05] MEDS: MIDODRINE HCL 5 MG TABLET PO SCH ×3 (10:58→17:47)
[2019-11-05] MEDS: CLOPIDOGREL BISULFATE 75 MG TAB PO SCH (10:58)
[2019-11-05] MEDS: ROCURONIUM BROMIDE 1,250 MG in SODIUM CHLORIDE 0.9% 250ML 125 ML IV SCH ×2 (12:00→22:33)
[2019-11-05 12:27] LABS: ABG HCO3 26 mmol/L (22-26); ABG PCO2 86 mmHg (35-45); ABG PH 7.09 (7.35-7.45); ABG PO2 99 mmHg (80-105); ABG TCO2 29
[2019-11-05] MEDS ORDERED: MIDAZOLAM HCL 2 MG/2 ML VIAL ONE (12:30)
[2019-11-05] MEDS ORDERED: WATER STERILE 10 ML VIAL ONE (12:30)
[2019-11-05] MEDS ORDERED: ETOMIDATE 2 MG/ML 10 ML INJ IV ONE (12:30)
[2019-11-05] MEDS ORDERED: VECURONIUM BROMIDE FOR INJ 20 MG VIAL ONE (12:30)
[2019-11-05] MEDS ORDERED: SUCCINYLCHOLINE CHLORIDE 20 MG/ML 10ML VIAL ONE (12:30)
[2019-11-05] MEDS ORDERED: SODIUM BICARBONATE 8.4% INJ 50 ML SYR IV STA (12:33)
[2019-11-05] MEDS ORDERED: FUROSEMIDE INJ 10 MG/ML 4 ML VIAL IV ONE (12:45)
[2019-11-05] MEDS: SODIUM BICARBONATE 8.4% 150 ML in STERILE WATER IV SOLN 1,000 ML IV SCH ×2 (12:58→17:48)
[2019-11-05] MEDS: MIDAZOLAM HCL 50 MG in SODIUM CHLORIDE 0.9% 100 ML 90 ML IV PRN ×2 (13:00→20:33)
[2019-11-05] MEDS: CEFEPIME 1GM/NS 0.9% 50 ML 50 ML IV SCH (16:17)
[2019-11-05] MEDS: NOREPINEPHRINE INJ 4MG/4ML 16 MG in DEXTROSE 5% 250ML 250 ML IV SCH (18:28)
[2019-11-05] MEDS: MIRTAZAPINE 15 MG TAB PO SCH (20:19)
[2019-11-05] MEDS: SIMVASTATIN 40 MG TAB PO SCH (20:19)
[2019-11-05] MEDS: FENTANYL CITRATE INJ 2,000 MCG in SODIUM CHLORIDE 0.9% 250ML 210 ML IV PRN (20:33)
[2019-11-06] VITALS (31 sets, daily range): BP systolic 92–110; BP diastolic 22–73
[2019-11-06] MEDS: HEPARIN 25,000 UNIT 900 UNIT in DEXTROSE 5% 250ML 250 ML IV SCH ×2 (04:00→20:22)
[2019-11-06 04:51] LABS: ANION GAP 17.1 mmol/L (8-16); CREATININE, SERUM 4.35 mg/dL (0.72-1.25); POTASSIUM 5.1 mmol/L (3.5-5.1)
[2019-11-06 04:54] LABS: CALCIUM 6.8 mg/dL (8.4-10.2)
[2019-11-06] MEDS: INSULIN LISPRO 100 UNIT/1 ML 3ML VIAL SQ SCH ×3 (05:26→17:13)
[2019-11-06] MEDS: METRONIDAZOLE 500MG/NS 100ML 100 ML IV SCH ×3 (05:26→21:18)
[2019-11-06] MEDS: DEXAMETHASONE SOD PHOS INJ 4 MG/ML VIAL IV SCH (08:47)
[2019-11-06] MEDS: MIDODRINE HCL 5 MG TABLET PO SCH ×3 (08:47→16:58)
[2019-11-06] MEDS: FUROSEMIDE INJ 10 MG/ML 2 ML VIAL IV SCH (08:47)
[2019-11-06] MEDS: EZETIMIBE 10 MG TAB PO SCH (08:47)
[2019-11-06] MEDS: ASPIRIN 81 MG CHEW TAB PO SCH (08:47)
[2019-11-06] MEDS: PANTOPRAZOLE SOD 40 MG TABEC PO SCH (08:47)
[2019-11-06] MEDS: DOCUSATE SODIUM LIQD 100 MG/10 ML UDC NG SCH ×2 (08:47→16:58)
[2019-11-06] MEDS: CLOPIDOGREL BISULFATE 75 MG TAB PO SCH (08:47)
[2019-11-06] MEDS: NITROGLYCERIN 2% OINT 1 GM PKT TOP SCH (08:47)
[2019-11-06] MEDS: MIDAZOLAM HCL 50 MG in SODIUM CHLORIDE 0.9% 100 ML 90 ML IV PRN ×2 (10:01→18:06)
[2019-11-06] MEDS: FENTANYL CITRATE INJ 2,000 MCG in SODIUM CHLORIDE 0.9% 250ML 210 ML IV PRN ×2 (10:01→18:06)
[2019-11-06 11:07] LABS: ABG PH 7.14 (7.35-7.45)
[2019-11-06 11:08] LABS: ABG HCO3 25 mmol/L (22-26); ABG PCO2 74 mmHg (35-45); ABG PO2 36 mmHg (80-105); ABG TCO2 27
[2019-11-06] MEDS ORDERED: CEFEPIME 1GM/NS 0.9% 50 ML 50 ML IV SCH (11:30)
[2019-11-06] MEDS ORDERED: CALCIUM GLUCONATE 10% INJ 9.3 MEQ in SODIUM CHLORIDE 0.9% 100 ML 100 ML IV ONE (12:00)
[2019-11-06] MEDS ORDERED: SODIUM CHLORIDE 0.9% 1000ML 1,000 ML ONE (12:09)
[2019-11-06 13:03] LABS: BASOPHILS # (AUTO) 0.1 (0.0-0.1); BASOPHILS % 0.2 % (0.0-1.0); HEMATOCRIT 35.5 % (38.2-49.6); LYMPHOCYTES # (AUTO) 0.8 (1.0-3.2); MEAN CORPUSCULAR HEMOGLOBIN 30.7 pg (28-32); MEAN CORPUSCULAR VOLUME 99.2 fL (81-99); MONOCYTES # (AUTO) 0.9 (0.2-0.8); MONOCYTES % 3.6 % (4.4-11.3); NEUTROPHILS # (AUTO) 23.8 (2.1-6.9); NEUTROPHILS % 90.9 % (38.7-80.0); PLATELET COUNT 107 x10e3/uL (140-360); RED BLOOD COUNT 3.58 x10e6/uL (4.3-5.7); RED CELL DISTRIBUTION WIDTH 12.8 % (11.7-14.4)
[2019-11-06] MEDS: VASOPRESSIN 60 UNIT in DEXTROSE 5% 50ML 57 ML IV SCH (14:14)
[2019-11-06] MEDS: SODIUM BICARBONATE 8.4% 150 ML in STERILE WATER IV SOLN 1,000 ML IV SCH (14:15)
[2019-11-06] MEDS: NOREPINEPHRINE INJ 4MG/4ML 16 MG in DEXTROSE 5% 250ML 250 ML IV SCH (14:15)
[2019-11-06] MEDS: CEFEPIME 1GM/NS 0.9% 50 ML 50 ML IV SCH (15:11)
[2019-11-06] MEDS: ROCURONIUM BROMIDE 1,250 MG in SODIUM CHLORIDE 0.9% 250ML 125 ML IV SCH (16:59)
[2019-11-06 19:08] LABS: ABG PH 7.07 (7.35-7.45)
[2019-11-06 19:09] LABS: ABG HCO3 22 mmol/L (22-26); ABG PCO2 77 mmHg (35-45); ABG PO2 73 mmHg (80-105); ABG TCO2 25
[2019-11-06] MEDS: SIMVASTATIN 40 MG TAB PO SCH (20:22)
[2019-11-06] MEDS: MIRTAZAPINE 15 MG TAB PO SCH (20:24)
[2019-11-06] MEDS: EPINEPHRINE HCL 1:1000 1ML 4 MG in DEXTROSE 5% 250ML 250 ML IV PRN (20:57)
[2019-11-06] MEDS: AMIODARONE 900MG 500 ML IV SCH (21:25)
[2019-11-07] VITALS: BP 87/31
[2019-11-07] MEDS: INSULIN LISPRO 100 UNIT/1 ML 3ML VIAL SQ SCH (00:09)
[2019-11-07 01:00] VITALS: BP 107/64
[2019-11-07 02:00] VITALS: BP 125/46
[2019-11-07 03:00] VITALS: BP 114/48
[2019-11-07] MEDS: VASOPRESSIN 60 UNIT in DEXTROSE 5% 50ML 57 ML IV SCH (03:15)
[2019-11-07 04:00] VITALS: BP 127/42
[2019-11-07 04:36] LABS: BASOPHILS # (AUTO) 0.1 (0.0-0.1); BASOPHILS % 0.3 % (0.0-1.0); HEMATOCRIT 30.5 % (38.2-49.6); HEMOGLOBIN 9.4 g/dL (14.0-18.0); LYMPHOCYTES # (AUTO) 1.1 (1.0-3.2); LYMPHOCYTES % 4.1 % (18.0-39.1); MEAN CORPUSCULAR HGB CONC 30.8 g/dL (31-35); MEAN CORPUSCULAR VOLUME 100.7 fL (81-99); MONOCYTES # (AUTO) 0.8 (0.2-0.8); MONOCYTES % 3.1 % (4.4-11.3); NEUTROPHILS # (AUTO) 22.4 (2.1-6.9); NEUTROPHILS % 86.6 % (38.7-80.0); PLATELET COUNT 87 x10e3/uL (140-360); RED BLOOD COUNT 3.03 x10e6/uL (4.3-5.7); RED CELL DISTRIBUTION WIDTH 12.7 % (11.7-14.4)
[2019-11-07 04:57] LABS: ALBUMIN 1.7 g/dL (3.5-5.0); ALBUMIN/GLOBULIN RATIO 0.9 (0.8-2.0); ANION GAP 24.7 mmol/L (8-16); CREATININE, SERUM 5.32 mg/dL (0.72-1.25); MAGNESIUM 3.2 MG/DL (1.3-2.1)
[2019-11-07 04:59] LABS: CALCIUM 6.5 mg/dL (8.4-10.2)
[2019-11-07 05:00] VITALS: BP 111/44
[2019-11-07 05:00] LABS: POTASSIUM 6.7 mmol/L (3.5-5.1)
[2019-11-07] MEDS: METRONIDAZOLE 500MG/NS 100ML 100 ML IV SCH (05:30)
[2019-11-07] MEDS ORDERED: SODIUM BICARBONATE 8.4% INJ 50 ML SYR ONE (05:39)
[2019-11-07] MEDS ORDERED: EPINEPHRINE HCL SYRINGE ONE (05:39)
[2019-11-07 07:15] LABS: BAND NEUTROPHILS % (MANUAL) 1 %; LYMPHOCYTES % (MANUAL) 7 % (19-48); MONOCYTES % (MANUAL) 4 % (3.4-9.0); MYELOCYTES % (MANUAL) 1 % (0-0); NEUTROPHILS % (MANUAL) 87 % (40-74); NUCLEATED RED BLOOD CELLS 3
[2019-11-07 07:16] LABS: PLATELET ESTIMATE MODERATELY DECREASED; PLATELET MORPHOLOGY COMMENT NORMAL; RBC MORPHOLOGY COMMENT NORMAL
== END 2019-11-07 12:45 | disposition expired | DRG 207 ==
LOC: ER 05:23 → ERHOLD 05:29 → MED/SURG3 13:36 → COVIDICU 10-27 10:42 → ICU 11-07 06:20
PROVIDERS: ADMIT Family Medicine; ATTEND Family Medicine
PROC: 3E04317 Introduction of Other Thrombolytic into Central Vein, Percutaneous Approach (ICD-10-PCS; 2019-10-27)
PROC: 3E04317 Introduction of Other Thrombolytic into Central Vein, Percutaneous Approach (ICD-10-PCS; 2019-10-28)
PROC: 3E04317 Introduction of Other Thrombolytic into Central Vein, Percutaneous Approach (ICD-10-PCS; 2019-10-29)
PROC: 3E04317 Introduction of Other Thrombolytic into Central Vein, Percutaneous Approach (ICD-10-PCS; 2019-10-30)
PROC: 3E04317 Introduction of Other Thrombolytic into Central Vein, Percutaneous Approach (ICD-10-PCS; 2019-10-31)
PROC: 5A1955Z Respiratory Ventilation, Greater than 96 Consecutive Hours (ICD-10-PCS; 2019-11-02)
PROC: 0BH17EZ Insertion of Endotracheal Airway into Trachea, Via Natural or Artificial Opening (ICD-10-PCS; 2019-11-02)
PROC: 02HV33Z Insertion of Infusion Device into Superior Vena Cava, Percutaneous Approach (ICD-10-PCS; 2019-11-02)
PROC: 3E04317 Introduction of Other Thrombolytic into Central Vein, Percutaneous Approach (ICD-10-PCS; principal; 2019-11-04)
DX: U07.1 COVID-19 (principal); J12.9 Viral pneumonia, unspecified; N17.0 Acute kidney failure with tubular necrosis; R65.21 Severe sepsis with septic shock; J18.9 Pneumonia, unspecified organism; J96.01 Acute respiratory failure with hypoxia; I21.4 Non-ST elevation (NSTEMI) myocardial infarction; N13.30 Unspecified hydronephrosis; N17.9 Acute kidney failure, unspecified; E87.2 Acidosis; G72.81 Critical illness myopathy; E87.4 Mixed disorder of acid-base balance; I25.10 Atherosclerotic heart disease of native coronary artery without angina pectoris; Z95.1 Presence of aortocoronary bypass graft; I25.2 Old myocardial infarction; F17.200 Nicotine dependence, unspecified, uncomplicated; R31.29 Other microscopic hematuria; E83.51 Hypocalcemia; E87.5 Hyperkalemia; N48.89 Other specified disorders of penis; F17.210 Nicotine dependence, cigarettes, uncomplicated; J44.9 Chronic obstructive pulmonary disease, unspecified; E78.5 Hyperlipidemia, unspecified; R57.0 Cardiogenic shock; I73.9 Peripheral vascular disease, unspecified; G47.00 Insomnia, unspecified; Y95 Nosocomial condition; I46.9 Cardiac arrest, cause unspecified; I11.0 Hypertensive heart disease with heart failure; I50.9 Heart failure, unspecified
CPT/HCPCS: 31500; 36415; 36569; 36600; 70450; 71045; 74018; 76770; 80048; 80053; 80202; 81001; 81015; 82550; 82553; 82805; 82948; 83605; 83735; 84100; 84132; 84484; 84550; 85025; 85610; 85730; 87040; 87070; 87205; 93005; 93306; 93925; 94002; 94003; 99285; J0171; J0330; J0456; J0610; J0692; J0696; J1100; J1650; J1940; J2250; J3370; J7030; J7050; J7070; U0002